=== PATIENT | male | born 1955 | race Caucasian/White ===

== ENCOUNTER 2019-03-09 09:02 | Inpatient (IN) | payer MEDICARE, OTHER ==
[~2019-03-09] VITALS: Ht 175.3 cm; Wt 88.6 kg
[~2019-03-09 09:02] MED LIST: ATOR20TA66 PO; ESCI10TA54 PO; INSU100V36 SQ; LEVO50TA8 PO; RISP1TAB3 PO
[2019-03-09] MEDS ORDERED: normal saline 1000ML IV soln IV ONE (09:50)
[2019-03-09] MEDS ORDERED: piperacillin/tazo 3.375gm/50ml 50 ML IV ONE (09:50)
[2019-03-09] MEDS ORDERED: BUPR-94 PO (10:17)
[2019-03-09] MEDS ORDERED: LISI-600 PO (10:27)
[2019-03-09] MEDS ORDERED: INSU100V12 SQ (10:27)
[2019-03-09 10:30] LABS: BASOPHILS # (AUTO) 0.1 X10'3 (0-0.2); BASOPHILS % (AUTO) 0.8 % (0-1); EOSINOPHILS # (AUTO) 0.2 X10'3 (0-0.9); EOSINOPHILS % (AUTO) 1.6 % (0-6); HEMOGLOBIN 13.3 g/dl (14.0-17.9); LYMPHOCYTES # (AUTO) 1.1 X10'3 (1.1-4.8); LYMPHOCYTES % (AUTO) 11.1 % (21-51); MEAN CORPUSCULAR HEMOGLOBIN 32.8 PG (27.0-31.0); MEAN CORPUSCULAR HGB CONC 34.2 g/dL (33.0-36.5); MEAN CORPUSCULAR VOLUME 95.8 FL (78-98); MEAN PLATELET VOLUME 7.9 FL (7.4-10.4); MONOCYTES % (AUTO) 9.4 % (2-12); NEUTROPHILS # (AUTO) 7.9 X10'3 (1.8-7.7); NEUTROPHILS % (AUTO) 77.1 % (42-75); PLATELET COUNT 259 X10'3 (140-440); RED BLOOD COUNT 4.07 X10'6 (4.70-6.10); RED CELL DISTRIBUTION WIDTH 13.5 % (11.5-14.5); WHITE BLOOD COUNT 10.2 X10'3 (4.5-11.0)
[2019-03-09 11:17] LABS: CLARITY,URINE CLEAR (Clear); COLOR,URINE YELLOW (Yellow); GLUCOSE, URINE >=1000 mg/dl (Neg); KETONES,URINE NEGATIVE (Neg); LEUKOCYTE ESTERASE ,URINE NEGATIVE (Neg); NITRITES, URINE NEGATIVE (Neg); OCCULT BLOOD,URINE NEGATIVE (Neg); PROTEIN,URINE NEGATIVE (Neg); UROBILINOGEN,URINE 0.2 E.U/dL (0.2-1.0)
[2019-03-09 11:21] LABS: UA COLLECTION TYPE CLN CATCH MIDSTREAM
[2019-03-09 11:23] LABS: BACTERIA,URINE NONE SEEN /HPF (Neg); MUCUS STRANDS NONE SEEN /LPF (Neg); RBC,URINE NONE SEEN /HPF (0-2); SQUAMOUS EPITHELIAL CELL,UR FEW /LPF (FEW); WBC,URINE 0-4 /HPF (0-4)
[2019-03-09 11:29] LABS: ALANINE AMINOTRANSFERASE 44 U/L (12-78); ALBUMIN 3.5 G/DL (3.4-5.0); ALBUMIN/GLOBULIN RATIO 1.1 (1.1-1.5); ALKALINE PHOSPHATASE 110 IU/L (46-116); ANION GAP 11 (8-16); ASPARTATE AMINO TRANSFERASE 13 U/L (10-37); BILIRUBIN,TOTAL 0.6 MG/DL (0.1-1.0); BLOOD UREA NITROGEN 22 MG/DL (7-18); CALCIUM 9.3 MG/DL (8.5-10.1); CHLORIDE 93 MMOL/L (99-107); CREATININE 1.22 MG/DL (0.60-1.10); MAGNESIUM 1.9 MG/DL (1.5-2.4); POTASSIUM 4.8 MMOL/L (3.5-5.1); SODIUM 129 MMOL/L (135-145); TOTAL CARBON DIOXIDE 24.9 MMOL/L (24-32); TOTAL PROTEIN 6.8 G/DL (6.4-8.2); eGFR 60 ML/MIN
[2019-03-09 11:30] LABS: GLUCOSE 537 MG/DL (70-104)
[2019-03-09] MEDS ORDERED: insulin regular, human 10 units/0.1 ml syringe IV ONE (12:25)
[2019-03-09] MEDS ORDERED: insulin regular, human 10 units/0.1 ml syringe SQ ONE (12:25)
[2019-03-09] MEDS ORDERED: GABA-532 PO (12:41)
[2019-03-09] MEDS ORDERED: LEVO25TA7 PO (12:42)
[2019-03-09] MEDS ORDERED: potassium Cl 20 mEq SR tablet PO PRN ×2 (12:45)
[2019-03-09] MEDS ORDERED: ondansetron/PF 4mg/2ml inj IV PRN (12:45)
[2019-03-09] MEDS ORDERED: magnesium 2GM in 50ml NS 50 ML IV PRN (12:45)
[2019-03-09] MEDS ORDERED: magnesium 4gm in 100ml NS 100 ML IV PRN (12:45)
[2019-03-09] MEDS ORDERED: potassium Cl 40MEQ/NS 500ml 500 ML IV PRN ×2 (12:45)
[2019-03-09] MEDS ORDERED: magnesium Cl slow-release 64mg tablet PO PRN (12:45)
[2019-03-09] MEDS ORDERED: acetaminophen 325mg tablet PO PRN ×2 (12:45)
--- NOTE | 2019-03-09 14:05 | NUR ---
Report attempted, CORONA Miguelar to call back.
[2019-03-09 14:30] VITALS: BP 143/69
--- NOTE | 2019-03-09 14:30 | NUR ---
Pt received to room 345B via , VSS. Denies c/o at this time. Oriented to room.
[2019-03-09] MEDS ORDERED: piperacillin/tazo 3.375gm/50ml 50 ML IV SCH (16:00)
[2019-03-09] MEDS: gabapentin 300mg capsule PO SCH ×2 (16:44→23:47)
[2019-03-09] MEDS ORDERED: glucagon, human recombinant 1mg kit SUBCUT PRN (16:55)
[2019-03-09] MEDS ORDERED: MESSAGE TO PHARMACY PO ONE (16:55)
[2019-03-09] MEDS ORDERED: dextrose 50%-water 50ml dispensing syringe IV PRN ×2 (16:55)
[2019-03-09] MEDS ORDERED: dextrose ORAL solution 15 GM/59 ML bottle PO PRN ×2 (16:55)
[2019-03-09 17:24] LABS: HEMOGLOBIN A1C 9.6 % (4.5-6.2)
[2019-03-09] MEDS: piperacillin/tazo 4.5gm/100ml 100 ML IV SCH ×2 (17:44→23:48)
[2019-03-09 18:00] VITALS: BP 157/85
--- NOTE | 2019-03-09 18:38 | NUR ---
Problems reprioritized. Patient report given, questions answered & plan of care reviewed with Travis. Addendum: 03/09/19 at 1839 by Anneliese Del Castillo RN Amended: Links added.
--- NOTE | 2019-03-09 18:39 | NUR ---
Patient in room [facility]. I have received report from CORONA Coy and had the opportunity to ask questions and assume patient care.
[2019-03-09] MEDS: buPROPion 75mg tablet PO SCH (20:03)
[2019-03-09] MEDS: lactobacillus rhamnosus 10,000 MMU CELLS/CAPSULE PO SCH (20:03)
[2019-03-09] MEDS: insulin Lispro (HumaLOG) vial - multi-dose SQ SCH (20:06)
[2019-03-09] MEDS: insulin glargine (Lantus) pen - multi-dose SQ SCH (21:56)
[2019-03-10 00:22] VITALS: BP 147/76
[2019-03-10 04:30] LABS: ALBUMIN 3.1 G/DL (3.4-5.0); ANION GAP 11 (8-16); BASOPHILS # (AUTO) 0.1 X10'3 (0-0.2); BASOPHILS % (AUTO) 0.7 % (0-1); BLOOD UREA NITROGEN 13 MG/DL (7-18); BUN/CREATININE RATIO 12.5 (5.4-32.0); CALCIUM 9.3 MG/DL (8.5-10.1); CHLORIDE 100 MMOL/L (99-107); CREATININE 1.04 MG/DL (0.60-1.10); EOSINOPHILS # (AUTO) 0.2 X10'3 (0-0.9); EOSINOPHILS % (AUTO) 1.9 % (0-6); GLUCOSE 288 MG/DL (70-104); HEMATOCRIT 37.7 % (42.0-52.0); HEMOGLOBIN 12.7 g/dl (14.0-17.9); LYMPHOCYTES % (AUTO) 12.1 % (21-51); MAGNESIUM 1.7 MG/DL (1.5-2.4); MEAN CORPUSCULAR HEMOGLOBIN 32.1 PG (27.0-31.0); MEAN CORPUSCULAR HGB CONC 33.8 g/dL (33.0-36.5); MEAN CORPUSCULAR VOLUME 94.9 FL (78-98); MEAN PLATELET VOLUME 7.7 FL (7.4-10.4); MONOCYTES # (AUTO) 0.9 X10'3 (0-0.9); MONOCYTES % (AUTO) 10.7 % (2-12); NEUTROPHILS % (AUTO) 74.6 % (42-75); PLATELET COUNT 240 X10'3 (140-440); POTASSIUM 4.3 MMOL/L (3.5-5.1); RED BLOOD COUNT 3.97 X10'6 (4.70-6.10); SODIUM 134 MMOL/L (135-145); TOTAL CARBON DIOXIDE 23.5 MMOL/L (24-32); WHITE BLOOD COUNT 8.1 X10'3 (4.5-11.0); eGFR 73 ML/MIN
--- NOTE | 2019-03-10 06:10 | NUR ---
Problems reprioritized. Patient report given, questions answered & plan of care reviewed with Shea Coy.
--- NOTE | 2019-03-10 06:30 | NUR ---
Patient in room [facility]. I have received report from Travis and had the opportunity to ask questions and assume patient care. Addendum: 03/10/19 at 1035 by Anneliese Del Castillo RN Amended: Links added.
[2019-03-10] MEDS: K and/or MAG REPLACEMENT MC SCH (06:34)
[2019-03-10 07:00] VITALS: BP 131/83
[2019-03-10] MEDS: piperacillin/tazo 4.5gm/100ml 100 ML IV SCH ×3 (07:27→23:39)
[2019-03-10] MEDS: levoTHYROXINE 25mcg tablet PO SCH (07:28)
[2019-03-10] MEDS: atorvastatin 20mg tablet PO SCH (07:28)
[2019-03-10] MEDS: gabapentin 300mg capsule PO SCH ×3 (07:28→23:39)
[2019-03-10] MEDS: lactobacillus rhamnosus 10,000 MMU CELLS/CAPSULE PO SCH ×2 (07:28→19:47)
[2019-03-10] MEDS: buPROPion 75mg tablet PO SCH ×2 (07:28→19:47)
[2019-03-10] MEDS: lisinopril 20mg tablet PO SCH (07:29)
[2019-03-10] MEDS ORDERED: buproprion 150mg XL (24-hour) tablet PO SCH (08:00)
[2019-03-10] MEDS: insulin Lispro (HumaLOG) vial - multi-dose SQ SCH ×3 (10:15→18:40)
--- NOTE | 2019-03-10 12:19 | NUR ---
Patient in room [facility]B. I have received report from Anneliese JETER and had the opportunity to ask questions and assume patient care.
[2019-03-10 12:38] VITALS: BP 135/74
--- NOTE | 2019-03-10 14:01 | NUR ---
Student Medication Administration: For this medication-pass time frame, all medication were reviewed, dispensed, administered and documented per hospital policy by [employer] nurse.
--- NOTE | 2019-03-10 14:02 | NUR ---
Student documentation: I have reviewed and agree with all interventions, assessments performed and documented by [employer] student nurse.
--- NOTE | 2019-03-10 15:04 | NUR ---
DM Consult: Pt admit w/ scratches and cat bite on arm from feral cat. Hx T1DM A1C 9.6. Pt declined verbal DM ed; written verbal ed w/ RD contact information left at bedside. Pt PO 100% meals meeting needs. LBM 03/09. Will continue to monitor. Rec: 1. continue carb controlled/heart healthy diet 2. wt per rx Addendum: 03/10/19 at [address] Amended: Links added.
--- NOTE | 2019-03-10 16:08 | NUR ---
Dr. Mejia at bedside.
[2019-03-10 18:00] VITALS: BP 149/69
--- NOTE | 2019-03-10 18:28 | NUR ---
Problems reprioritized. Patient report given, questions answered & plan of care reviewed with Travis. Addendum: 03/10/19 at 1828 by Anneliese Del Castillo RN Amended: Links added.
--- NOTE | 2019-03-10 18:29 | NUR ---
Patient in room [facility]. I have received report from CORONA Coy and had the opportunity to ask questions and assume patient care.
[2019-03-10] MEDS: insulin glargine (Lantus) pen - multi-dose SQ SCH (20:39)
[2019-03-11] VITALS: BP 121/74
[2019-03-11 04:54] LABS: BASOPHILS # (AUTO) 0.1 X10'3 (0-0.2); BASOPHILS % (AUTO) 1.1 % (0-1); EOSINOPHILS # (AUTO) 0.2 X10'3 (0-0.9); EOSINOPHILS % (AUTO) 2.4 % (0-6); HEMATOCRIT 39.2 % (42.0-52.0); HEMOGLOBIN 13.6 g/dl (14.0-17.9); LYMPHOCYTES # (AUTO) 1.2 X10'3 (1.1-4.8); LYMPHOCYTES % (AUTO) 17.4 % (21-51); MEAN CORPUSCULAR HEMOGLOBIN 32.7 PG (27.0-31.0); MEAN CORPUSCULAR HGB CONC 34.6 g/dL (33.0-36.5); MEAN CORPUSCULAR VOLUME 94.7 FL (78-98); MEAN PLATELET VOLUME 7.7 FL (7.4-10.4); MONOCYTES # (AUTO) 0.8 X10'3 (0-0.9); MONOCYTES % (AUTO) 12.1 % (2-12); NEUTROPHILS # (AUTO) 4.6 X10'3 (1.8-7.7); PLATELET COUNT 264 X10'3 (140-440); RED BLOOD COUNT 4.14 X10'6 (4.70-6.10); WHITE BLOOD COUNT 6.9 X10'3 (4.5-11.0)
[2019-03-11 05:13] LABS: ALBUMIN 3.2 G/DL (3.4-5.0); ANION GAP 10 (8-16); BLOOD UREA NITROGEN 17 MG/DL (7-18); CALCIUM 9.6 MG/DL (8.5-10.1); CHLORIDE 98 MMOL/L (99-107); CREATININE 1.13 MG/DL (0.60-1.10); GLUCOSE 324 MG/DL (70-104); MAGNESIUM 1.8 MG/DL (1.5-2.4); POTASSIUM 4.7 MMOL/L (3.5-5.1); SODIUM 132 MMOL/L (135-145); eGFR 66 ML/MIN
--- NOTE | 2019-03-11 06:28 | NUR ---
Problems reprioritized. Patient report given, questions answered & plan of care reviewed with CORONA Mayfield.
--- NOTE | 2019-03-11 06:29 | NUR ---
Patient in room [facility]. I have received report from Travis JETER and had the opportunity to ask questions and assume patient care.
[2019-03-11 07:04] VITALS: BP 147/76
[2019-03-11] MEDS: levoTHYROXINE 25mcg tablet PO SCH (07:46)
[2019-03-11] MEDS: lactobacillus rhamnosus 10,000 MMU CELLS/CAPSULE PO SCH (07:47)
[2019-03-11] MEDS: atorvastatin 20mg tablet PO SCH (07:48)
[2019-03-11] MEDS: lisinopril 20mg tablet PO SCH (07:48)
[2019-03-11] MEDS: gabapentin 300mg capsule PO SCH (07:48)
[2019-03-11] MEDS: buPROPion 75mg tablet PO SCH (07:49)
[2019-03-11] MEDS: piperacillin/tazo 4.5gm/100ml 100 ML IV SCH (07:52)
[2019-03-11] MEDS: K and/or MAG REPLACEMENT MC SCH (08:00)
[2019-03-11] MEDS: insulin Lispro (HumaLOG) vial - multi-dose SQ SCH (08:31)
--- NOTE | 2019-03-11 08:36 | NUR ---
Student Medication Administration: For this medication-pass time frame, all medication were reviewed, dispensed, administered and documented per hospital policy by Luciana Kaur [facility]. Double check of insulin was done.
[2019-03-11] MEDS ORDERED: AMOX-580 PO (09:02)
[2019-03-11] MEDS ORDERED: LACT1CAP26 PO (09:02)
[2019-03-11 11:16] VITALS: BP 142/79
== END 2019-03-11 12:03 | disposition home or self-care (01) | DRG 603 ==
LOC: ER 09:03 → SUR 3N 14:44 → CMPBEDREQ 19:31
PROVIDERS: ADMIT Internal Medicine; ATTEND Family Medicine
DX: L03.113 Cellulitis of right upper limb (principal); E87.1 Hypo-osmolality and hyponatremia; E03.9 Hypothyroidism, unspecified; E11.65 Type 2 diabetes mellitus with hyperglycemia; E78.5 Hyperlipidemia, unspecified; F12.90 Cannabis use, unspecified, uncomplicated; F17.290 Nicotine dependence, other tobacco product, uncomplicated; F32.9 Major depressive disorder, single episode, unspecified; I10 Essential (primary) hypertension; Z79.4 Long term (current) use of insulin; Z79.890 Hormone replacement therapy; Z79.899 Other long term (current) drug therapy; W55.01XA Bitten by cat, initial encounter; Y93.89 Activity, other specified; Y92.89 Other specified places as the place of occurrence of the external cause; Y99.8 Other external cause status
CPT/HCPCS: 36415; 80048; 80053; 81001; 82948; 83036; 83605; 83735; 84145; 85025; 85610; 87040; 87070; 96365; 96372; 96375; 99285; G0378; J1815; J2543

== ENCOUNTER 2019-08-13 03:21 | Outpatient (CLI) | payer MEDICARE, OTHER ==
[~2019-08-13 03:21] MED LIST changes: +BUPR-94 PO; -ESCI10TA54 PO; +GABA-532 PO; +INSU100V12 SQ; +LACT1CAP26 PO; +LEVO25TA7 PO; -LEVO50TA8 PO; +LISI-600 PO; -RISP1TAB3 PO
== END 2019-08-13 23:59 | disposition home or self-care (01) ==
LOC: DIABETIC 03:21
PROVIDERS: ATTEND Family Medicine
DX: E10.9 Type 1 diabetes mellitus without complications (principal); Z79.4 Long term (current) use of insulin; Z79.899 Other long term (current) drug therapy
CPT/HCPCS: G0108

== ENCOUNTER 2022-06-22 21:48 | Emergency (ER) | payer MEDICARE ==
[~2022-06-22] VITALS: Ht 175.3 cm; Wt 81.8 kg
[~2022-06-22 21:48] MED LIST changes: +ASPI-1264 PO; -LISI-600 PO; +LISI20TA28 PO; +OMEP20TA43 PO
[2022-06-22 21:52] VITALS: BP 123/74
[2022-06-22 22:32] LABS: BASOPHILS # (AUTO) 0.1 X10'3 (0-0.2); BASOPHILS % (AUTO) 0.8 % (0-1); EOSINOPHILS # (AUTO) 0.1 X10'3 (0-0.9); EOSINOPHILS % (AUTO) 1.2 % (0-6); HEMATOCRIT 36.4 % (42.0-52.0); HEMOGLOBIN 12.7 g/dl (14.0-17.9); LYMPHOCYTES # (AUTO) 0.8 X10'3 (1.1-4.8); LYMPHOCYTES % (AUTO) 9.8 % (21-51); MEAN CORPUSCULAR HEMOGLOBIN 32.8 PG (27.0-31.0); MEAN CORPUSCULAR HGB CONC 34.9 g/dL (33.0-36.5); MEAN CORPUSCULAR VOLUME 93.7 FL (78-98); MEAN PLATELET VOLUME 6.9 FL (7.4-10.4); MONOCYTES # (AUTO) 0.7 X10'3 (0-0.9); MONOCYTES % (AUTO) 9.6 % (2-12); NEUTROPHILS # (AUTO) 6.1 X10'3 (1.8-7.7); NEUTROPHILS % (AUTO) 78.6 % (42-75); PLATELET COUNT 332 X10'3 (140-440); RED BLOOD COUNT 3.88 X10'6 (4.70-6.10); RED CELL DISTRIBUTION WIDTH 13.6 % (11.5-14.5); WHITE BLOOD COUNT 7.7 X10'3 (4.5-11.0)
[2022-06-22 22:35] LABS: ALANINE AMINOTRANSFERASE 94 U/L (12-78); ALBUMIN 3.7 G/DL (3.4-5.0); ALBUMIN/GLOBULIN RATIO 1.2 (1.1-1.5); ALKALINE PHOSPHATASE 70 IU/L (46-116); ANION GAP 9 (8-16); ASPARTATE AMINO TRANSFERASE 50 U/L (10-37); BILIRUBIN,TOTAL 0.4 MG/DL (0.1-1.0); BLOOD UREA NITROGEN 13 MG/DL (7-18); BUN/CREATININE RATIO 15.5 (5.4-32.0); CHLORIDE 101 MMOL/L (99-107); CREATININE 0.84 MG/DL (0.60-1.10); GLUCOSE 111 MG/DL (70-104); LIPASE 78 U/L (73-393); POTASSIUM 3.9 MMOL/L (3.5-5.1); SODIUM 136 MMOL/L (135-145); TOTAL CARBON DIOXIDE 26.1 MMOL/L (24-32); TOTAL PROTEIN 6.8 G/DL (6.4-8.2); eGFR > 90 ML/MIN
[2022-06-23] MEDS ORDERED: ondansetron/PF 4mg/2ml inj IV ONE (01:45)
== END 2022-06-23 03:01 | disposition home or self-care (01) ==
LOC: ER 21:48
DX: R11.2 Nausea with vomiting, unspecified (principal); H11.31 Conjunctival hemorrhage, right eye; E11.9 Type 2 diabetes mellitus without complications; F12.90 Cannabis use, unspecified, uncomplicated; Z87.891 Personal history of nicotine dependence; Z79.82 Long term (current) use of aspirin; Z79.4 Long term (current) use of insulin; Z79.899 Other long term (current) drug therapy
CPT/HCPCS: 36415; 80053; 83690; 85025; 93005; 96374; 99284; J2405